=== PATIENT | male | born 1960 | race Caucasian/White ===

== ENCOUNTER → 2018-10-01 | Outpatient (CLI) | payer OTHER ==
--- NOTE | 2018-10-01 14:43 | Diagnostic Imaging Report ---
PROCEDURE:TESTICULAR ULTRASOUND COMPARISON:None. INDICATIONS:hydrocele TECHNIQUE: Umaña-scale and color doppler images of the testicles and scrotal contents were obtained. Duplex imaging with spectral waveform analysis was performed of the testicular arteries and veins. FINDINGS: RIGHT SCROTUM: Testicle: 4.9 x 2.7 x 3.4 cm. Normal echogenicity. Normal vascularity. No focal lesions. Epididymal head: 1.6 x 0.4 x 0.9 cm. Normal echogenicity. Normal vascularity. No focal lesions. No focal lesions. Hydrocele: Large, anechoic Varicocele: None. Normal arterial and venous flow is documented in the right testicle. LEFT SCROTUM: Testicle: 4.9 x 2.6 x 2.7 cm. Normal echogenicity. Normal vascularity. No focal lesions. Epididymal head: 1.4 x 1.1 x 1.0 cm. Normal echogenicity. Normal vascularity. No focal lesions.. Hydrocele: Trace Varicocele: None. Normal arterial and venous flow is documented in the left testicle. Overlying scrotal skin/soft tissues are unremarkable. Bilateral normal-appearing, normal-sized inguinal lymph nodes are identified, with normal fatty min. CONCLUSION: 1. Normal bilateral testicular size, and echogenicity. No focal lesions. No evidence of torsion. 2. Large right simple appearing hydrocele. Trace left hydrocele. Ash Encinas M.D. Dictated by: Ash Encinas M.D. on 10/01/2018 at 14:52 Electronically approved by: Ash Encinas M.D. on 10/01/2018 at 14:52
--- NOTE | 2018-10-01 14:44 | Diagnostic Imaging Report ---
PROCEDURE:TESTICULAR DOPPLER ULTRASOUND COMPARISON:None. INDICATIONS:hydrocele CONCLUSION: Please see previously dictated report under testicular ultrasound performed same date. Ash Encinas M.D. Dictated by: Ash Encinas M.D. on 10/01/2018 at 14:53 Electronically approved by: Ash Encinas M.D. on 10/01/2018 at 14:53
== END ==
LOC: US 09:03
PROVIDERS: ATTEND Urology
DX: N43.3 Hydrocele, unspecified (principal)
CPT/HCPCS: 76870; 93976